=== PATIENT | female | born 1985 | race Caucasian/White ===

== ENCOUNTER 2021-04-30 06:42 | Day surgery (SDC) | payer BC ==
[~2021-04-30 06:42] MED LIST: Lactated Ringers 1,000 ML IV SCH
[2021-04-30] MEDS ORDERED: Bupivacaine 0.25% 10 ML SDV ONE (07:24)
[2021-04-30] MEDS ORDERED: HYDROmorphone 1 MG/ML Syringe IVPUSH PRN (07:32)
[2021-04-30] MEDS ORDERED: Naloxone 0.4 MG/ML SDV IVPUSH PRN (07:32)
[2021-04-30] MEDS ORDERED: Albuterol 0.083% 2.5 MG/3 ML Neb Soln NEB PRN (07:32)
[2021-04-30] MEDS ORDERED: Metoclopramide 10 MG/2 ML SDV IVPUSH PRN (07:32)
[2021-04-30] MEDS ORDERED: Ondansetron 4 MG/2 ML SDV IVPUSH PRN (07:32)
[2021-04-30] MEDS ORDERED: fentaNYL 100 MCG/2 ML SDV IVPUSH PRN (07:32)
[2021-04-30] MEDS ORDERED: fentaNYL 250 MCG/5 ML SDV ONE ×5 (07:40→10:34)
[2021-04-30] MEDS ORDERED: Propofol 200 MG/20 ML SDV ONE ×2 (07:40→09:22)
[2021-04-30] MEDS ORDERED: fentaNYL 100 MCG/2 ML SDV ONE (08:50)
[2021-04-30] MEDS ORDERED: Ketorolac 30 MG/ML SDV IVPUSH ONE (09:09)
[2021-04-30] MEDS ORDERED: Acetaminophen/HYDROcodone 325-5 MG Tab PO PRN (09:09)
[2021-04-30] MEDS ORDERED: MELATONIN 3 MG PO PRN (09:10)
[2021-04-30] MEDS ORDERED: ERGOCALCIFEROL 50000 UNIT PO SCH (09:15)
[2021-04-30] MEDS ORDERED: Acetaminophen 1,000 MG in Premix Bag 1 BAG IV ONE (09:23)
[2021-04-30] MEDS ORDERED: Rocuronium Bromide 50 MG/5 ML Syringe ONE (16:29)
[2021-04-30] MEDS ORDERED: Ketorolac 30 MG/ML SDV ONE (16:29)
[2021-04-30] MEDS ORDERED: Sugammadex Sodium 200 MG/2 ML VIAL ONE (16:29)
[2021-04-30] MEDS ORDERED: ePHEDrine 50 MG/ML SDV ONE (16:29)
[2021-04-30] MEDS ORDERED: Dexamethasone 4 MG/ML 5 ML MDV ONE (16:29)
[2021-04-30] MEDS ORDERED: Ondansetron 4 MG/2 ML SDV ONE (16:29)
[2021-04-30] MEDS ORDERED: Glycopyrrolate 0.2 MG/ML SDV ONE (16:29)
== END 2021-04-30 11:14 | disposition home or self-care (01) ==
LOC: MW.SDS 06:42
PROVIDERS: ATTEND Obstetrics & Gynecology
DX: N80.2 Endometriosis of fallopian tube (principal); Z20.822 Contact with and (suspected) exposure to COVID-19
CPT/HCPCS: 36415; 58662; 81025; 84703; 85027; 87635; J0131; J1100; J1885; J2405; J2704; J3010; J3490; J7030; J7120; U0002

== ENCOUNTER 2023-01-09 04:28 | Observation (INO) | payer BC ==
[2023-01-09] MEDS ORDERED: Sodium Chloride 0.9% 2.5 ML Syringe FLUSH PRN (04:41)
[2023-01-09] MEDS ORDERED: Lidocaine 1% 50 ML MDV INJECT PRN (04:41)
[2023-01-09] MEDS ORDERED: Carboprost Tromethamine 250 MCG/1 mL Vial IM PRN (04:41)
[2023-01-09] MEDS ORDERED: Sodium Chloride 0.9% 20 ML SDV IV PRN (04:41)
[2023-01-09] MEDS ORDERED: Sodium Chloride 0.9% 10 ML Syringe FLUSH PRN (04:41)
[2023-01-09] MEDS ORDERED: Ondansetron 4 MG/2 ML SDV IVPUSH PRN ×2 (04:41→14:41)
[2023-01-09] MEDS ORDERED: Methylergonovine 0.2 MG/1 ML Amp IM PRN (04:41)
[2023-01-09] MEDS ORDERED: Terbutaline 1 MG/ML SDV SUBCUT PRN (04:41)
[2023-01-09] MEDS ORDERED: Water For Irrigation,Sterile 1,000 ML Container IRR PRN (04:41)
[2023-01-09] MEDS ORDERED: Tranexamic Acid IN NACL,ISO-OS 1,000 MG in Premix Bag 1 BAG IV PRN ×2 (04:41)
[2023-01-09] MEDS ORDERED: Misoprostol 200 MCG Tab PO PRN (04:41)
[2023-01-09] MEDS ORDERED: Oxytocin/0.9 % Sodium Chloride 30 UNIT/500 ML BAG IV SCH ×2 (04:45)
[2023-01-09] MEDS ORDERED: Nalbuphine 10 MG/0.5 ML Syringe IVPUSH PRN (04:47)
[2023-01-09] MEDS: Lactated Ringers 1,000 ML IV SCH ×3 (05:45→10:55)
[2023-01-09 06:49] LABS: HEMATOCRIT 35.9 % (37.0-47.0); HEMOGLOBIN 11.9 g/dL (12.0-16.0); MEAN CORPUSCULAR HEMOGLOBIN 27.7 pg (28.0-32.0); MEAN CORPUSCULAR HGB CONC 33.1 g/dL (32.0-36.0); MEAN CORPUSCULAR VOLUME 83.7 fL (83.0-99.0); PLATELET COUNT,PLT 200 K/uL (150-400); RED BLOOD CELL COUNT 4.29 M/uL (4.10-5.30); WHITE BLOOD CELL COUNT,WBC 8.46 K/uL (3.9-11.3)
[2023-01-09] MEDS ORDERED: Phenylephrine HCl 0.5 MG/5 ML AMP IVPUSH PRN (07:13)
[2023-01-09] MEDS ORDERED: ePHEDrine 50 MG/ML SDV IVPUSH PRN ×2 (07:13)
[2023-01-09] MEDS ORDERED: Ropivacaine HCl/PF 400 MG in Premix Bag 1 BAG EPIDUR SCH (07:15)
[2023-01-09] MEDS ORDERED: Ropivacaine/PF 400 MG/200 ML PCA ONE (09:15)
[2023-01-09] MEDS ORDERED: Bupivacaine 0.5% 10 ML SDV ONE (09:15)
[2023-01-09] MEDS ORDERED: Benzocaine/Menthol 20%-0.5% Spray 78 GM Cannister TOP PRN (14:41)
[2023-01-09] MEDS ORDERED: Witch Hazel Medicated Pads 40/Jar TOP PRN (14:41)
[2023-01-09] MEDS ORDERED: Acetaminophen 500 MG Tab PO PRN ×2 (14:41)
[2023-01-09] MEDS ORDERED: Bisacodyl 10 MG Supp RECTAL PRN (14:41)
[2023-01-09] MEDS ORDERED: Lanolin 100% Cream 7 GM Tube TOP PRN (14:41)
[2023-01-09] MEDS: Docusate Sodium 100 MG Cap PO SCH (15:05)
[2023-01-09] MEDS: Ketorolac 30 MG/ML SDV IVPUSH SCH ×2 (15:05→21:40)
[2023-01-09] MEDS: ceFAZolin 2 GM in Sodium Chloride 0.9% 50 ML IV ONE ×2 (16:05→16:30)
[2023-01-10] MEDS: Ketorolac 30 MG/ML SDV IVPUSH SCH ×2 (03:09→08:40)
[2023-01-10] MEDS: Docusate Sodium 100 MG Cap PO SCH (03:22)
[2023-01-10 06:48] LABS: HEMOGLOBIN 8.9 g/dL (12.0-16.0)
[2023-01-10] MEDS ORDERED: Docusate Sodium 100 MG Cap PO SCH (09:00)
[2023-01-10] MEDS ORDERED: Ibuprofen 400 MG Tab PO PRN (15:00)
[2023-01-10] MEDS ORDERED: Ibuprofen 800 MG Tab PO PRN (15:00)
== END 2023-01-10 16:15 | disposition home or self-care (01) ==
LOC: MW.OBCHECK 04:28 → MW.OB 04:30 → MW.OBCHECK 14:22 → MW.OB 14:23
PROVIDERS: ADMIT Obstetrics & Gynecology; ATTEND Obstetrics & Gynecology
DX: O80 Encounter for full-term uncomplicated delivery (principal); O09.813 Supervision of pregnancy resulting from assisted reproductive technology, third trimester; O09.523 Supervision of elderly multigravida, third trimester; Z3A.38 38 weeks gestation of pregnancy; Z79.82 Long term (current) use of aspirin; Z79.899 Other long term (current) drug therapy
CPT/HCPCS: 36415; 85014; 85018; 85027; 86592; 86850; 86900; 86901; A9270; J0690; J1885; J2590; J2795; J3490; J7120